=== PATIENT | male | born 1950 | race Caucasian/White ===

== ENCOUNTER 2020-01-05 05:20 | Day surgery (SDC) | payer OTHER | END 2020-01-05 16:00 | disposition home or self-care (01) | LOC: CIR.AMB 05:20 | PROVIDERS: ATTEND Specialist | DX: K40.90 Unilateral inguinal hernia, without obstruction or gangrene, not specified as recurrent (principal); Z20.828 Contact with and (suspected) exposure to other viral communicable diseases ==